=== PATIENT | male | born 1965 | race African-American/Black ===

== ENCOUNTER 2016-09-09 23:53 | Emergency (ER) | payer MEDICAID ==
[~2016-09-09] VITALS: Ht 185.4 cm; Wt 80.0 kg
[2016-09-10] MEDS ORDERED: INSULIN REGULAR (HUMULIN R) 300UNITS/3ML SUBCUT ONE (01:15)
[2016-09-10 02:12] VITALS: BP 106/63
== END 2016-09-10 02:35 | disposition home or self-care (01) ==
LOC: ER 23:53
DX: Z13.9 Encounter for screening, unspecified (principal); E11.9 Type 2 diabetes mellitus without complications
CPT/HCPCS: 82962; 96372; 99283; J1815